=== PATIENT | female | born 1960 | race Caucasian/White ===

== ENCOUNTER 2024-07-03 06:16 | Day surgery (SDC) | payer MEDICARE, OTHER ==
[~2024-07-03 06:16] MED LIST: Sodium Chloride 0.9% 10 ML Syringe FLUSH PRN
[2024-07-03] MEDS ORDERED: Ondansetron 4 MG/2 ML SDV IVPUSH ONE (06:17)
[2024-07-03] MEDS ORDERED: Propofol 200 MG/20 ML SDV IV ONE (06:17)
[2024-07-03] MEDS ORDERED: Lidocaine 2% 100 MG/5 ML Syringe IVPUSH ONE (06:17)
[2024-07-03] MEDS ORDERED: Midazolam 1 MG/ML 2 ML SDV IV ONE (06:17)
[2024-07-03] MEDS: Lactated Ringers 1,000 ML IV SCH (07:22)
[2024-07-03] MEDS: Simethicone Drops 40 MG/0.6 ML 30 ML Bottle ONE (07:41)
== END 2024-07-03 10:00 | disposition home or self-care (01) ==
LOC: FB.SDS 06:16
PROVIDERS: ATTEND Surgery
DX: Z12.11 Encounter for screening for malignant neoplasm of colon (principal); Z86.0101 Personal history of adenomatous and serrated colon polyps; Z80.0 Family history of malignant neoplasm of digestive organs
CPT/HCPCS: 00811; A9270-GY; J2250; J2405; J2704; J7120